=== PATIENT | male | born 1990 | race Caucasian/White ===

== ENCOUNTER 2019-10-14 11:38 | Outpatient (REF) | payer MEDICAID, SELFPAY ==
[2019-10-23 14:55] LABS: Methylphenidate >2000 ng/mL; Ritalinic Acid >10000 ng/mL
== END 2019-10-14 11:58 ==
LOC: LBN 11:38
PROVIDERS: PCP Nurse Practitioner; Visit Provider Nurse Practitioner
DX: R41.840 Attention and concentration deficit (principal); Z51.81 Encounter for therapeutic drug level monitoring
CPT/HCPCS: 80360

== ENCOUNTER 2019-10-27 10:34 | Outpatient (CLI) | payer MEDICAID, SELFPAY ==
[2019-10-27 12:43] LABS: ALT 57 U/L (16-63); AST 46 U/L (15-37); Albumin 3.9 g/dL (3.4-5.0); Alkaline Phosphatase 82 U/L (46-116); Anion Gap 8.8 mmol/L (3-11); BUN 17 mg/dL (7-18); Bilirubin, Total 0.5 mg/dL (0.2-1.0); CO2 30.2 mmol/L (21.0-32.0); CREATININE 0.96 mg/dL (0.70-1.30); Calcium 8.8 mg/dL (8.5-10.1); Chloride 105 mmol/L (98-107); Glucose 91 mg/dL (74-106); Potassium 4.1 mmol/L (3.5-5.1); Sodium 144 mmol/L (136-145); Total Protein 7.2 g/dL (6.4-8.2)
[2019-10-28 10:47] LABS: HBs Antibody, Qual Positive (See Note); HBs Antibody, Quant 224.7 mIU/mL (See Note); Hepatitis B Core Antibody Negative (Negative); Hepatitis B surface Ag Negative (Negative); Hepatitis C Ab w Rflx HCV PCR Reactive (Negative)
[2019-10-28 15:47] LABS: HCV RNA Detection Quantitative 0 IU/mL (Undetected)
== END 2019-10-27 10:54 ==
PROVIDERS: PCP Nurse Practitioner; Visit Provider Nurse Practitioner
DX: B19.20 Unspecified viral hepatitis C without hepatic coma (principal)
CPT/HCPCS: 36415; 80053; 86704; 86706; 86803; 87340; 87522

== ENCOUNTER 2020-08-18 01:15 | Outpatient (CLI) | payer MEDICAID, SELFPAY ==
[2020-08-22 14:00] LABS: Patient Race White; SARS-CoV-2 RNA Undetected (Undetected); SARS-CoV-2 Specimen Source Nasal
== END 2020-08-18 01:35 ==
PROVIDERS: PCP Nurse Practitioner; Visit Provider Nurse Practitioner
DX: J02.9 Acute pharyngitis, unspecified (principal); R52 Pain, unspecified
CPT/HCPCS: U0003

== ENCOUNTER 2020-12-05 16:29 | Outpatient (REF) | payer MEDICAID, SELFPAY ==
[2020-12-09 09:39] LABS: Amphetamine 1393 ng/mL (Cutoff: 25); Amphetamines Interpretation Positive.; MDA (Ecstasy Metabolite) Negative ng/mL (Cutoff: 25); MDMA (Ecstasy) Negative ng/mL (Cutoff: 25); Methamphetamine 23093 ng/mL (Cutoff: 25); Phentermine Negative ng/mL (Cutoff: 25); Pseudoephedrine/Ephedrine Negative ng/mL (Cutoff: 25)
== END 2020-12-05 16:30 | disposition home or self-care (01) ==
LOC: LBO 16:29
PROVIDERS: PCP Nurse Practitioner; Visit Provider Nurse Practitioner
DX: R89.2 Abnormal level of other drugs, medicaments and biological substances in specimens from other organs, systems and tissues (principal)
CPT/HCPCS: 80324

== ENCOUNTER 2021-05-29 10:14 | Outpatient (CLI) | payer MEDICAID, SELFPAY ==
--- NOTE | 2021-05-29 10:00 | RT.EKG_ITS ---
APPROVED REPORT Exam: Resting ECG Reason for Exam: chronic stimulants Patient Location: O HR:93 bpm ECG Measurements Heart Rate 93 AXIS WY 151 P 63 QRSd 87 QRS 9 QT 348 T 48 QTc 432 Conclusion Sinus rhythm...normal P axis, V-rate 60- 99
== END 2021-05-29 10:15 | disposition home or self-care (01) ==
LOC: DI.KIM 10:15
PROVIDERS: PCP Nurse Practitioner; Visit Provider Nurse Practitioner
DX: F11.20 Opioid dependence, uncomplicated (principal); I10 Essential (primary) hypertension; F90.9 Attention-deficit hyperactivity disorder, unspecified type

== ENCOUNTER 2021-10-31 00:47 | Outpatient (CLI) | payer MEDICAID, SELFPAY | END 2021-10-31 01:07 | PROVIDERS: PCP Nurse Practitioner; Visit Provider Nurse Practitioner ==

== ENCOUNTER 2022-03-06 10:22 | Outpatient (REF) | payer MEDICAID, SELFPAY ==
[2022-03-09 04:44] LABS: Benzoylecgonine 5293 ng/mL (Cutoff: 50); Cocaine Negative ng/mL (Cutoff: 50); Cocaine Interpretation Positive.
== END 2022-03-06 10:23 | disposition home or self-care (01) ==
LOC: LBN 10:22
PROVIDERS: PCP Nurse Practitioner; Visit Provider Nurse Practitioner
DX: R89.2 Abnormal level of other drugs, medicaments and biological substances in specimens from other organs, systems and tissues (principal)
CPT/HCPCS: 80353

== ENCOUNTER 2022-04-22 02:14 | Outpatient (CLI) | payer MEDICAID, SELFPAY | END 2022-04-22 02:15 | disposition home or self-care (01) | LOC: LBO 02:14 | PROVIDERS: PCP Nurse Practitioner; Visit Provider Nurse Practitioner ==

== ENCOUNTER 2022-05-02 03:32 | Outpatient (CLI) | payer MEDICAID, SELFPAY | END 2022-05-02 03:33 | disposition home or self-care (01) | LOC: RT 03:32 | PROVIDERS: PCP Nurse Practitioner; Visit Provider Family Medicine ==

== ENCOUNTER 2022-05-06 04:31 | Outpatient (CLI) | payer MEDICAID, SELFPAY | END 2022-05-06 04:32 | disposition home or self-care (01) | LOC: RT 04:31 | PROVIDERS: PCP Nurse Practitioner; Visit Provider Family Medicine ==

== ENCOUNTER 2022-07-10 09:29 | Outpatient (CLI) | payer MEDICAID, SELFPAY ==
--- NOTE | 2022-07-10 09:15 | RT.EKG_ITS ---
APPROVED REPORT Exam: Resting ECG Reason for Exam: on Ritalin Patient Location: O HR:104 bpm ECG Measurements Heart Rate 104 AXIS WA 192 P 68 QRSd 97 QRS 32 QT 353 T 67 QTc 465 Conclusion Sinus tachycardia...rate> [address] depression, anterolateral leads...ST <-0.07mV, I aVL V2-V6
== END 2022-07-10 09:30 | disposition home or self-care (01) ==
LOC: DI.KIM 09:30
PROVIDERS: PCP Nurse Practitioner; Visit Provider Nurse Practitioner
DX: R00.0 Tachycardia, unspecified (principal); Z79.899 Other long term (current) drug therapy
CPT/HCPCS: 93010

== ENCOUNTER 2023-01-21 19:09 | Emergency (ER) | payer MEDICAID, SELFPAY ==
[2023-01-21 19:22] VITALS: BP 142/96; PULSE 118; RESP 19; TEMP 36.8; O2SAT 96
--- NOTE | 2023-01-21 19:42 | ED.GENADUL_ITS ---
Discharge Plan Disposition Patient Disposition: Home Discharge Details Clinical Impression: Cellulitis of arm, left Primary Care Provider: Altagracia Dobbs ED Provider: Toya Aguilar Home Meds and New Rx's Prescriptions: New sulfamethoxazole-trimethoprim [Bactrim DS] 800-160 mg tablet 1 tab PO BID 10 Days Qty: 20 0RF No Action bupropion HCl [Wellbutrin XL] 300 mg tablet extended release 24 hr 300 mg PO QAM Qty: 90 3RF valacyclovir 500 mg tablet 500 mg PO DAILY Qty: 90 3RF methadone 10 mg tablet 70 mg PO DAILY methylphenidate HCl 10 mg tablet See Rx Instructions PO DAILY MDD 50mg Qty: 140 0RF Rx Instructions: 2 in the AM, 2 at noon, and 1 in the afternoon methylphenidate HCl 10 mg tablet See Rx Instructions PO DAILY MDD 50mg Qty: 140 0RF Rx Instructions: 2 tabs AM, 2 tabs noon, 1 tab PM methylphenidate HCl 10 mg tablet See Rx Instructions PO DAILY MDD 50mg Qty: 140 0RF Rx Instructions: 2 tabs AM, 2 tabs noon, 1 tab PM fluticasone propionate 50 mcg/actuation spray,suspension 2 spray JACINTO DAILY Qty: 18.2 6RF Rx Instructions: administer into each nostril Discharge Instructions Instructions: Cellulitis (ED) Additional Instructions: Please take the antibiotic twice daily as directed. Take this with yogurt or probiotic. Keep clean and dry. Follow up with primary care provider in 3-5 days. Return to ED sooner if any worsening or concerns. Increase oral fluids. The phone number for the manager recovery is [phone] if you are interested in rehab or treatment. Referrals: Altagracia Dobbs, TRISHA [Primary Care Provider] - 5 days Medical Decision Making 32-year-old male presents to the ER with an infected lesion on his left inner forearm. He does have a history of opioid dependency, he noticed this 3 to 4 days ago he does have red streaks going up his arm. Denies any fever or chills. I do suspect IV drug use. Patient presents with his girlfriend who also has si milar complaints. Past medical history includes hepatitis C, genital herpes, anxiety tobacco abuse, ADHD. I do suspect IV drug use, there is an area of induration and cellulitis erythema. We will give Bactrim here in the department and 2 tablets to go. assistant wrestling coach paged. assistant wrestling coach here in the ER to speak with patient. Given Bactrim and strict return instructions. Instructed to follow-up with PCP keep clean and dry. This text was generated using DrawQuestation system, please disregard any oddities of phrase or misspellings. HPI General Mode of arrival: ambulatory . Date/Time Provider Initiated Documentation: 01/21/23 19:29 . Limitations to Documentation: no limitations . Information obtained by: patient, RN notes reviewed and old records reviewed . HPI Narrative: 32-year-old male presents to the ER with an infected lesion on his left inner forearm. He does have a history of opioid dependency, he noticed this 3 to 4 days ago he does have red streaks going up his arm. Denies any fever or chills. I do suspect IV drug use. Patient presents with his girlfriend who also has similar complaints. Past medical history includes hepatitis C, genital herpes, anxiety tobacco abuse, ADHD. Related Data Home Medications Medication Instructions Recorded Confirmed fluticasone propionate 50 2 spray intranasal DAILY #18.2 mL 04/19/22 mcg/actuation nasal spray,suspension bupropion HCl 300 mg 24 hr tablet, 300 mg PO QAM #90 tabs 07/10/22 07/10/22 extended release (Wellbutrin XL) methadone 10 mg tablet 70 mg PO DAILY 07/10/22 valacyclovir 500 mg tablet 500 mg PO DAILY #90 tab-caps 07/10/22 07/10/22 methylphenidate HCl 10 mg tablet See Rx Instructions PO DAILY #140 11/26/22 11/26/22 tabs methylphenidate HCl 10 mg tablet See Rx Instructions PO DAILY #140 11/26/22 11/26/22 tabs methylphenidate HCl 10 mg tablet See Rx Instructions PO DAILY #140 11/26/22 11/26/22 tabs sulfamethoxazole 800 1 tab PO BID 10 days #20 tabs 01/21/23 mg-trimethoprim 160 mg tablet (Bactrim DS) Previous Rx's Medication Instructions Recorded fluticasone propionate 50 2 spray intranasal DAILY #18.2 mL 04/19/22 mcg/actuation nasal spray,suspension bupropion HCl 300 mg 24 hr tablet, 300 mg PO QAM #90 tabs 07/10/22 extended release (Wellbutrin XL) valacyclovir 500 mg tablet 500 mg PO DAILY #90 tab-caps 07/10/22 methylphenidate HCl 10 mg tablet See Rx Instructions PO DAILY #140 11/26/22 tabs methylphenidate HCl 10 mg tablet See Rx Instructions PO DAILY #140 11/26/22 tabs methylphenidate HCl 10 mg tablet See Rx Instructions PO DAILY #140 11/26/22 tabs sulfamethoxazole 800 1 tab PO BID 10 days #20 tabs 01/21/23 mg-trimethoprim 160 mg tablet (Bactrim DS) Allergies Allergy/AdvReac Type Severity Reaction Status Date / Time No Known Allergies Allergy Verified 09/05/22 11:00 General Stated Complaint: Cellulitis ANGELI: 4 Review of Systems Integumentary/Breasts Skin/Breast: Reports skin pain, Reports skin swelling and Reports wounds PFSH All Active Problems (Updated 01/21/23 @ 19:47 by Toya Aguilar NP) Cellulitis of arm, left (Acute) Elevated blood pressure reading in office with diagnosis of hypertension (Acute) Abnormal drug screen (Acute) Overweight (Acute) Opioid dependence on agonist therapy (Acute) Depression (Chronic) ADHD (attention deficit hyperactivity disorder) (Acute) Body aches (Acute) Sore throat (Acute) Environmental allergies (Acute) Sinus pressure (Acute) Dental abscess (Acute) Attention and concentration deficit (Chronic) Tobacco abuse (Acute 04/16/18) Opioid dependence (Acute 01/07/17) no use since Nov 2013 IV drugs History of opioid abuse (Acute 04/16/18) Hepatitis C virus infection (Acute 11/07/16) Genital herpes in men (Acute 11/08/16) Anxiety (Acute 06/01/18) Medical History Cellulitis of left upper extremity (11/07/16) Social History Smoking/Tobacco Use Status: Former Tobacco Use Tobacco: How many years used: 2 Smoking risk assessment performed?: Yes Alcohol Intake: never Substance use type: does not use Details: Patient currently on methadone. 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 Scabbed over puncture wound 2. Erythema and red streaks Course Vital Signs Vital signs: Vital Signs Temperature 36.8 C 01/21/23 19:22 Pulse 118 H 01/21/23 19:22 Respiratory Rate 19 01/21/23 19:22 Blood Pressure 142/96 H 01/21/23 19:22 Pulse Oximetry 96 01/21/23 19:22 Temperature 36.8 C 01/21/23 19:22 Temperature Source Temporal Artery Scan 01/21/23 19:22 Pulse 118 H 01/21/23 19:22 Respiratory Rate 19 01/21/23 19:22 Respiratory Effort Normal 01/21/23 19:26 Blood Pressure 142/96 H 01/21/23 19:22 Blood Pressure Position Sitting 01/21/23 19:22 Pulse Oximetry 96 01/21/23 19:22 Oxygen Delivery Method Room Air 01/21/23 19:22 Oxygen Flow Rate 0 01/21/23 19:22 Pain Level 0 01/21/23 19:22
[2023-01-21] MEDS: Sulfameth/Trimeth DS TAB 1 TAB PO (20:27)
[2023-01-21] MEDS: Sulfameth/Trimeth DS, 2 TABS/BTL 1 TAB PO (20:27)
== END 2023-01-21 20:39 | disposition home or self-care (01) ==
PROVIDERS: Emergency Provider Registered Nurse Emergency; PCP Nurse Practitioner
DX: L03.114 Cellulitis of left upper limb (principal); S51.832A Puncture wound without foreign body of left forearm, initial encounter; X58.XXXA Exposure to other specified factors, initial encounter
CPT/HCPCS: 99283; 99284

== ENCOUNTER 2024-08-04 19:34 | Outpatient (REF) | payer MEDICAID, SELFPAY ==
[2024-08-04 17:19] LABS: Abs Immature Grans 0.07 10^3/uL (0.0-0.06); Absolute Basophil Count 0.02 10^3/uL (0.0-0.2); Absolute Lymphocyte Count 0.86 10^3/uL (1.2-3.4); Absolute Monocyte Count 0.37 10^3/uL (0.1-0.8); Absolute Neutrophil Count 7.04 10^3/uL (1.2-6.7); Basophils % 0.2 %; HCT 40.8 % (40.0-50.0); HGB 13.6 g/dL (13.5-17.5); Immature Grans % 0.8 %; Lymphocytes % 10.3 %; MCH 29.1 pg (27.0-33.0); MCHC 33.3 % (32.0-36.0); MCV 87 fL (80-95); Monocytes % 4.4 %; Neutrophils % 84.3 %; Platelet Count 217 10^3/uL (130-400); RBC 4.67 10^6/uL (4.36-5.78); RDW 12.9 % (11.8-14.1); RDW-SD 40.8 fL; WBC 8.36 10^3/uL (4.4-10.8)
[2024-08-04 17:35] LABS: ALT 35 U/L (16-63); AST 35 U/L (15-37); Albumin 4.2 g/dL (3.4-5.0); Alkaline Phosphatase 82 U/L (46-116); Anion Gap 11.7 mmol/L (3-11); BUN 11 mg/dL (7-18); Bilirubin, Total 0.83 mg/dL (0.2-1.0); CO2 27.3 mmol/L (21.0-32.0); CREATININE 0.9 mg/dL (0.70-1.30); Calcium 9.1 mg/dL (8.5-10.1); Calculated LDL 167 mg/dL (<100); Chloride 104 mmol/L (98-107); Cholesterol 227 mg/dL (<200); Estimated GFR 113.51 (mL/min/1.73m2); Glucose 101 mg/dL (74-106); HDL Cholesterol 51 mg/dL (40-60); Potassium 3.8 mmol/L (3.5-5.1); Sodium 143 mmol/L (136-145); Total Protein 7.7 g/dL (6.4-8.2); Triglyceride 46 mg/dL (<150)
== END 2024-08-04 19:35 | disposition home or self-care (01) ==
LOC: LBN 19:34
PROVIDERS: PCP Nurse Practitioner; Visit Provider Nurse Practitioner
DX: F90.8 Attention-deficit hyperactivity disorder, other type (principal); B19.20 Unspecified viral hepatitis C without hepatic coma; Z13.220 Encounter for screening for lipoid disorders
CPT/HCPCS: 80053; 80061; 85025

== ENCOUNTER 2024-11-12 06:57 | Emergency (ER) | payer MEDICAID, SELFPAY ==
[2024-11-12 07:00] VITALS: BP 142/89; PULSE 79; RESP 16; TEMP 36.8; O2SAT 98
[2024-11-12 07:04] VITALS: BP 142/89; PULSE 79; RESP 16; TEMP 36.8; O2SAT 98
--- NOTE | 2024-11-12 07:18 | ED.GENADUL_ITS ---
Discharge Plan Disposition Patient Disposition: Home Condition: Good Discharge Details Clinical Impression: Dysuria Primary Care Provider: Altagracia Dobbs ED Provider: Juan Belcher Home Meds and New Rx's Prescriptions: New doxycycline hyclate 100 mg tablet 100 mg PO BID 7 Days Qty: 14 0RF No Action methadone 10 mg tablet 185 mg PO DAILY methylphenidate HCl 10 mg tablet See Rx Instructions PO DAILY MDD 50mg Qty: 140 0RF Rx Instructions: 2 tabs AM, 2 tabs noon, 1 tab PM valacyclovir 500 mg tablet 500 mg PO DAILY Qty: 90 3RF methylphenidate HCl 10 mg tablet See Rx Instructions PO DAILY MDD 50mg Qty: 140 0RF Rx Instructions: 2 in the AM, 2 at noon, and 1 in the afternoon methylphenidate HCl 10 mg tablet See Rx Instructions PO DAILY MDD 50mg Qty: 140 0RF Rx Instructions: 2 tabs AM, 2 tabs noon, 1 tab PM imiquimod 5 % cream in packet 1 applic topical .3xw Qty: 24 1RF fluticasone propionate 50 mcg/actuation spray,suspension 2 spray JACINTO DAILY Qty: 18.2 6RF Rx Instructions: administer into each nostril Discharge Instructions Instructions: Dysuria (ED) Additional Instructions: At this time there is concern that you have a mild urinary tract infection. In your age group, there is a high risk for potential sexually transmitted infection that can cause the symptoms. You have been tested for gonorrhea and chlamydia. This will take a few days for the results to come back. In the meantime you have consented for prophylactic treatment. Please take the doxycycline as prescribed. Please make sure to take it with food as it will oth erwise cause nausea and vomiting. Please use protection or remain abstinent until your STD results have returned negative. If you notice any worsening of your symptoms, or any new symptoms such as vomiting, diarrhea, fever, chills, shortness of breath, chest pain, numbness, weakness, or fainting , please return immediately to the emergency department for reevaluation. Please follow up with your primary care provider as soon as possible for reassessment and reevaluation. As always, it was a pleasure participating in your medical care today. Referrals: Altagracia Dobbs NP [Primary Care Provider] - [facility] General Date/Time Provider Initiated Documentation: 11/12/24 06:58 . HPI Narrative: 34-year-old male with a past medical history of dental caries, previous cellulitis, tobacco use, history of hepatitis C, ADHD, herpes, presents today for evaluation of dysuria. Patient states that for the last 24 hours he has had burning with urination and is also noticed some yellowish penile discharge. He denies any history of STDs aside for the herpes. He states that he has been with his current female partner for quite some time. He denies any anal sex. He does state that she was recently treated for urinary tract infection. He states that he has not had sex with any other partners. He denies any fever or chills. He denies any abdominal pain. He denies any other complaints at this time. Related Data Home Medications ?Medication ?Instructions ?Recorded ?Confirmed fluticasone propionate 50 2 spray intranasal DAILY #18.2 mL 04/19/22 11/12/24 mcg/actuation nasal spray,suspension methadone 10 mg tablet 185 mg PO DAILY 07/10/22 11/12/24 methylphenidate HCl 10 mg tablet See Rx Instructions PO DAILY #140 05/27/23 11/12/24 tabs valacyclovir 500 mg tablet 500 mg PO DAILY #90 tab-caps 07/07/24 11/12/24 imiquimod 5 % topical cream packet 1 applic topical .3xw #24 ea 08/04/24 11/12/24 methylphenidate HCl 10 mg tablet See Rx Instructions PO DAILY #140 09/28/2404/29 tabs methylphenidate HCl 10 mg tablet See Rx Instructions PO DAILY #140 09/28/24 11/12/24 tabs doxycycline hyclate 100 mg tablet 100 mg PO BID 7 days #14 tabs 11/12/24 Previous Rx's ?Medication ?Instructions ?Recorded fluticasone propionate 50 2 spray intranasal DAILY #18.2 mL 04/19/22 mcg/actuation nasal spray,suspension methylphenidate HCl 10 mg tablet See Rx Instructions PO DAILY #140 05/27/23 tabs valacyclovir 500 mg tablet 500 mg PO DAILY #90 tab-caps 07/07/24 imiquimod 5 % topical cream packet 1 applic topical .3xw #24 ea 08/04/24 methylphenidate HCl 10 mg tablet See Rx Instructions PO DAILY #140 12/24/24 tabs methylphenidate HCl 10 mg tablet See Rx Instructions PO DAILY #140 09/28/24 tabs doxycycline hyclate 100 mg tablet 100 mg PO BID 7 days #14 tabs 11/12/24 Allergies Allergy/AdvReac Type Severity Reaction Status Date / Time No Known Allergies Allergy Verified 11/12/24 07:03 General Stated Complaint: Urinary ANGELI: 4 Exam Narrative Exam Narrative: 1.Const: Well-nourished, Well-developed, appearing stated age 2.Eyes: PERRL, no conjunctival injection, and symmetrical lids. 3.ENT: Atraumatic external nose and ears. Moist MM. Neck: Symmetric, trachea midline, No thyromegaly. 4.CVS: +S1/S2, Peripheral pulses 2+ and equal in all extremities. Brisk capillary refill in all extremities. 5.RESP: Unlabored respiratory effort. Clear to auscultation bilaterally. No wheezes rales or rhonchi 6.GI: Soft, Nontender/Nondistended, No hepatosplenomegaly. No guarding or rebound. Genital exam demonstrates normal male genitalia, no lesions in general or herpetic lesions. Very small amount of urethral discharge which appears to be combination of urine and a small questionable component that may be purulent. No scrotal or testicular tenderness. 7.MSK: Normocephalic/Atraumatic, Extremities w/o deformity or ttp No cyanosis or clubbing, Normal movement of all extremities 8.Skin: Warm, Dry. No rashes or lesions. 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 Sensation grossly intact, no focal neurologic deficits. 10.Psych: (AAO) x3. Appropriate mood and affect Course Vital Signs Vital signs: Vital Signs Temperature 36.8 C 11/12/24 07:00 Pulse 79 11/12/24 07:00 Respiratory Rate 16 11/12/24 07:00 Blood Pressure 142/89 H 11/12/24 07:00 Pulse Oximetry 98 11/12/24 07:00 Temperature 36.8 C 11/12/24 07:04 Temperature Source Oral 11/12/24 07:04 Pulse 79 11/12/24 07:04 Respiratory Rate 16 11/12/24 07:04 Blood Pressure 142/89 H 11/12/24 07:04 Pulse Oximetry 98 11/12/24 07:04 Medical Decision Making 34-year-old male with a past medical history of dental caries, previous cellulitis, tobacco use, history of hepatitis C, ADHD, herpes, presents today for evaluation of dysuria. Patient states that for the last 24 hours he has had burning with urination and is also noticed some yellowish penile discharge. He denies any history of STDs aside for the herpes. He states that he has been with his current female partner for quite some time. He denies any anal sex. He does state that she was recently treated for urinary tract infection. He states that he has not had sex with any other partners. He denies any fever or chills. He denies any abdominal pain. He denies any other complaints at this time. Exam demonstrates a stable appearing male, no acute distress, questionable small amount of discharge at the urethral meatus, no tenderness. No herpetic lesions. No lesions in general. No scrotal or testicular pain. No prostatic discomfort to suggest prostatitis. No fevers to suggest systemic component. High concern for potential sexually transmitted infection. He denies concerning red flags of anal intercourse. A basic urinary tract infection certainly on the differential as well but I feel slightly less likely considering his age and risk factors. We will send for gonorrhea and chlamydia testing. Patient has consented and is requesting prophylactic antibiotics. Will give 500 mg of IM ceftriaxone, and 100 mg of doxycycline twice daily for 7 days. Recommend utilizing protection until results return negative and symptoms resolved. I have extensively reviewed the treatment plan and discharge instructions with the patient. I have addressed all patient concerns at this time. The patient was made aware of what symptoms to monitor for that would warrant a return to the emergency department. Discussed the plan with the patient, they demonstrate verbal understanding and agreement with our assessment and plan at this time. The documentation in this chart was dictated using [employer] dictation software. Please excuse any dictation errors. Quality:SDOH Health Related Social Needs: No Data to Display PFSH All Active Problems (Updated 11/12/24 @ 07:23 by Juan Belcher DO) Dysuria (Acute) Elevated blood pressure reading in office with diagnosis of hypertension (Acute) Abnormal drug screen (Acute) Overweight (Acute) Opioid dependence on agonist therapy (Acute) Depression (Chronic) ADHD (attention deficit hyperactivity disorder) (Acute) Body aches (Acute) Sore throat (Acute) Environmental allergies (Acute) Sinus pressure (Acute) Dental abscess (Acute) Attention and concentration deficit (Chronic) Tobacco abuse (Acute 04/16/18) Opioid dependence (Acute 01/07/17) no use since Nov 2013 IV drugs History of opioid abuse (Acute 04/16/18) Hepatitis C virus infection (Acute 11/07/16) Genital herpes in men (Acute 11/08/16) Anxiety (Acute 06/01/18) Medical History Cellulitis of left upper extremity (11/07/16) Family History (Updated 08/04/24 @ 08:03 by Kera Ross LPN) Father No problems noted. Mother , of MVA, age 42 No problems noted. Social History Smoking/Tobacco Use Status: Former Tobacco Use Tobacco: How many years used: 2 Smoking risk assessment performed?: Yes Alcohol Intake: never Substance use type: does not use Counseling given: No (has regular counseling at [facility]) Details: Patient currently on methadone. 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
[2024-11-12 07:20] LABS: Bilirubin Negative (Negative); Blood Trace-intact (Negative); Clarity Sl Cloudy (Clear); Glucose Negative (Negative); Ketones Negative (Negative); Leukocyte Esterase Small (Negative); Nitrite Negative (Negative); Specific Gravity >= 1.030 (1.005-1.025); Urobilinogen 0.2 mg/dL (Up to 0.2); pH 5.5 (5-8)
[2024-11-12 07:35] LABS: Bacteria Few HPF (Negative); C & S Indicated? Yes; Casts Negative LPF (Negative); Crystals Negative HPF (Negative); Epithelial Cells Rare HPF (Negative); Mucus Trace (Negative); Other Cells Negative (Negative); RBC Negative HPF (0-2); WBC >50 HPF (0-5)
[2024-11-12] MEDS: cefTRIAXone 1 GM VIAL 0.5 GM IM (07:35)
[2024-11-12] MEDS: Lidocaine 1% Pres-Free 5 ML VIAL (07:36)
[2024-11-12] MEDS: Doxycycline Hyclate 100 MG, 2 CAPS/BTL PO (07:36)
[2024-11-15 12:08] LABS: Chlamydia Result Negative (Negative)
[2024-11-15 12:56] LABS: GC Result Positive (Negative)
--- NOTE | 2024-11-15 13:00 | NUR.NOTE ---
Accessed chart to get the antibiotics prescribed on discharge for positive gonnorrhea culture result. Nursing Note:
--- NOTE | 2024-11-15 16:10 | W.EDPROG ---
Date of service: 11/15/24 Time of Service: 16:11 Medical Decision Making Quality:SDOH Health Related Social Needs: No Data to Display Discharge Plan Disposition Patient Disposition: Home Condition: Good Discharge Details Clinical Impression: Dysuria Primary Care Provider: Altagracia Dobbs ED Provider: Juan Belcher Home Meds and New Rx's Prescriptions: New doxycycline hyclate 100 mg tablet 100 mg PO BID 7 Days Qty: 14 0RF No Action methadone 10 mg tablet 185 mg PO DAILY methylphenidate HCl 10 mg tablet See Rx Instructions PO DAILY MDD 50mg Qty: 140 0RF Rx Instructions: 2 tabs AM, 2 tabs noon, 1 tab PM valacyclovir 500 mg tablet 500 mg PO DAILY Qty: 90 3RF methylphenidate HCl 10 mg tablet See Rx Instructions PO DAILY MDD 50mg Qty: 140 0RF Rx Instructions: 2 in the AM, 2 at noon, and 1 in the afternoon methylphenidate HCl 10 mg tablet See Rx Instructions PO DAILY MDD 50mg Qty: 140 0RF Rx Instructions: 2 tabs AM, 2 tabs noon, 1 tab PM imiquimod 5 % cream in packet 1 applic topical .3xw Qty: 24 1RF fluticasone propionate 50 mcg/actuation spray,suspension 2 spray JACINTO DAILY Qty: 18.2 6RF Rx Instructions: administer into each nostril Discharge Instructions Instructions: Dysuria (ED) Additional Instructions: At this time there is concern that you have a mild urinary tract infection. In your age group, there is a high risk for potential sexually transmitted infection that can cause the symptoms. You have been tested for gonorrhea and chlamydia. This will take a few days for the results to come back. In the meantime you have consented for prophylactic treatment. Please take the doxycycline as prescribed. Please make sure to take it with food as it will otherwise cause nausea and vomiting. Please use protection or remain abstinent until your STD results have returned negative. If you notice any worsening of your symptoms, or any new symptoms such as vomiting, diarrhea, fever, chills, shortness of breath, chest pain, numbness, weakness, or fainting , please return immediately to the emergency department for reevaluation. Please follow up with your primary care provider as soon as possible for reassessment and reevaluation. As always, it was a pleasure participating in your medical care today. Referrals: Altagracia Dobbs NP [Primary Care Provider] - Discharge Data Discharge Date/Time-TO BE ENTERED AT DEPARTURE: 11/12/24 07:41
--- NOTE | 2024-11-15 16:18 | W.ED.FU ---
Date of service: 11/15/24 Time of Service: 16:18 Follow Up Plan: I called the patient at home as his gonorrhea swab was positive. He reported that his symptoms had improved. He received intramuscular ceftriaxone and was on doxycycline. Will call in expedited partner for pt's partner: Ginger Barnes 06/03/01. I called cefixime [phone] p.o. once and doxycycline 100 mg twice daily for 7 days. I advised patient to abstain from sexual intercourse until it had been at least 1 week since they have completed their treatment. I advised PCP follow-up for test of cure. We discussed return indications for fever or had any recurrent dysuria.
== END 2024-11-12 07:41 | disposition home or self-care (01) ==
PROVIDERS: Emergency Provider Student in an Organized Health Care Education/Training Program; PCP Nurse Practitioner
DX: R30.0 Dysuria (principal); Z87.891 Personal history of nicotine dependence
CPT/HCPCS: 87491; 87591; 96372; 99284; 81003; 81015; 87086; J0696; J2003

== ENCOUNTER 2024-11-12 07:50 | Outpatient (CLI) | payer MEDICAID, SELFPAY ==
--- NOTE | 2024-11-12 07:45 | RT.EKG_ITS ---
APPROVED REPORT Exam: Resting ECG Reason for Exam: HIGH RISK MEDICATION USE Patient Location: O HR:76 bpm ECG Measurements Heart Rate 76 AXIS SC 163 P 61 QRSd 84 QRS 14 QT 412 T 48 QTc 464 Conclusion Sinus rhythm...normal P axis, V-rate 50- 99 Normal Electrocardiogram
== END 2024-11-12 07:51 | disposition home or self-care (01) ==
PROVIDERS: PCP Nurse Practitioner; Visit Provider Family Medicine
DX: Z79.899 Other long term (current) drug therapy (principal)
CPT/HCPCS: 93005; 93010

== ENCOUNTER 2025-01-08 09:00 | Emergency (ER) | payer MEDICAID, SELFPAY ==
--- NOTE | 2025-01-08 09:00 | DI.RAD_ITS ---
Exam(s) XR CHEST 2V PA LATERAL EXAM: XR CHEST 2V PA LATERAL CLINICAL HISTORY: cough TECHNIQUE: 2D digital imaging was performed of the chest. Two images were obtained. PA and lateral views were obtained. COMPARISON: No exams were available for comparison FINDINGS: MEDIASTINUM: Normal. HEART: Normal. PULMONARY VASCULATURE: Normal. LUNGS: Clear. PLEURAL SPACE: No pleural effusion or pneumothorax. BONE:Within normal limits for the patient's age. OTHER FINDINGS:Normal. IMPRESSION: No acute pulmonary findings. DATA REPOSITORY: RADIATION DOSE DELIVERED:
[2025-01-08 09:06] VITALS: BP 138/93; PULSE 116; RESP 17; TEMP 37; O2SAT 96
[2025-01-08 09:08] VITALS: BP 138/93; PULSE 116; RESP 17; TEMP 37; O2SAT 96
--- NOTE | 2025-01-08 09:11 | ED.GENADUL_ITS ---
Discharge Plan Disposition Patient Disposition: Home Condition: Stable Discharge Details Clinical Impression: Respiratory infection Primary Care Provider: Altagracia Dobbs ED Provider: Oli Mccloud Home Meds and New Rx's Prescriptions: New prednisone 20 mg tablet 60 mg PO DAILY 4 Days Qty: 12 0RF doxycycline hyclate 100 mg tablet 100 mg PO BID Qty: 14 0RF Continued methadone 10 mg tablet 185 mg PO DAILY methylphenidate HCl 10 mg tablet See Rx Instructions PO DAILY MDD 50mg Qty: 140 0RF Rx Instructions: 2 in the AM, 2 at noon, and 1 in the afternoon methylphenidate HCl 10 mg tablet See Rx Instructions PO DAILY MDD 50mg Qty: 140 0RF Rx Instructions: 2 tabs AM, 2 tabs noon, 1 tab PM methylphenidate HCl 10 mg tablet See Rx Instructions PO DAILY MDD 50mg Qty: 140 0RF Rx Instructions: 2 tabs AM, 2 tabs noon, 1 tab PM imiquimod 5 % cream in packet 1 applic topical .3xw Qty: 24 1RF valacyclovir 500 mg tablet 500 mg PO DAILY Qty: 90 3RF fluticasone propionate 50 mcg/actuation spray,suspension 2 spray JACINTO DAILY Qty: 18.2 6RF Rx Instructions: administer into each nostril Discharge Instructions Additional Instructions: You can use your albuterol inhaler every 4 hours, 2 puffs at a time. If not improving this week follow-up with your primary care provider or express care. If you feel significantly more ill or have difficulty breathing return to the emergency department for reevaluation. HPI General Mode of arrival: ambulatory . Date/Time Provider Initiated Documentation: 01/08/25 09:06 . Limitations to Documentation: no limitations . Information obtained by: patient . History of Present Illness 34 year old M presents to the emergency department with the chief complaint of cough, described as moderate, Patient started experiencing this day(s) (5) and it has been constant. No relieving factors improve symptom(s), No exacerbating factors reported . Patient notes denies nausea/vomiting and shortness of breath. Patient did receive the following treatments prior to arrival, none Related Data Home Medications ?Medication ?Instructions ?Recorded ?Confirmed fluticasone propionate 50 2 spray intranasal DAILY #18.2 mL 04/19/2201/08/ mcg/actuation nasal spray,suspension methadone 10 mg tablet 185 mg PO DAILY 07/10/22 01/08/25 imiquimod 5 % topical cream packet 1 applic topical .3xw #24 ea 12/06/24 01/08/25 methylphenidate HCl 10 mg tablet See Rx Instructions PO DAILY #140 12/06/2402/27 tabs methylphenidate HCl 10 mg tablet See Rx Instructions PO DAILY #140 12/06/24 01/08/25 tabs methylphenidate HCl 10 mg tablet See Rx Instructions PO DAILY #140 12/06/24 01/08/25 tabs valacyclovir 500 mg tablet 500 mg PO DAILY #90 tab-caps 12/06/24 01/08/25 doxycycline hyclate 100 mg tablet 100 mg PO BID #14 tabs 01/08/25 prednisone 20 mg tablet 60 mg (3 x 20 mg) PO DAILY 4 days 01/08/25 #12 tabs Previous Rx's ?Medication ?Instructions ?Recorded fluticasone propionate 50 2 spray intranasal DAILY #18.2 mL 04/19/22 mcg/actuation nasal spray,suspension imiquimod 5 % topical cream packet 1 applic topical .3xw #24 ea 12/06/24 methylphenidate HCl 10 mg tablet See Rx Instructions PO DAILY #140 12/06/24 tabs methylphenidate HCl 10 mg tablet See Rx Instructions PO DAILY #140 12/06/24 tabs methylphenidate HCl 10 mg tablet See Rx Instructions PO DAILY #140 12/06/24 tabs valacyclovir 500 mg tablet 500 mg PO DAILY #90 tab-caps 12/06/24 doxycycline hyclate 100 mg tablet 100 mg PO BID #14 tabs 01/08/25 prednisone 20 mg tablet 60 mg (3 x 20 mg) PO DAILY 4 days 01/08/25 #12 tabs Allergies Allergy/AdvReac Type Severity Reaction Status Date / Time No Known Allergies Allergy Verified 01/08/25 09:08 General Stated Complaint: RespSymp ANGELI: 4 Review of Systems All systems reviewed & are unremarkable except as noted in HPI and below Constitutional Constitutional: Reports chills, Reports fever(s) and Denies weakness Cardiovascular Cardiovascular: Denies chest pain and Denies dyspnea Respiratory Respiratory: Reports cough and Denies dyspnea Gastrointestinal Gastrointestinal: Denies abdominal pain, Denies nausea and Denies vomiting Musculoskeletal Musculoskeletal: Denies joint swelling Neurologic Neurologic: Denies weakness Psychiatric Psychiatric: Denies depression Exam Const General: no acute distress Orientation: alert [facility] Head: normal to inspection Ears: external ears normal General nose exam: external nose normal Mouth: moist mucous membranes Eyes General: appearance normal, both eyes and all related structures Neck Neck: normal visual inspection Resp Effort & Inspection: normal respiratory effort and able to speak in complete sentences Auscultation: rhonchi and wheezes Cardio Jugular venous pressure: no JVD Rate: regular rate Skin General skin exam: no rashes or lesions noted Neuro General: patient alert and patient oriented x3 Extrem General: normal to inspection Psych Mental Status: mental status grossly normal Course Vital Signs Vital signs: Vital Signs Temperature 37.0 C 01/08/25 09:06 Pulse 116 H 01/08/25 09:06 Respiratory Rate 17 01/08/25 09:06 Blood Pressure 138/93 H 01/08/25 09:06 Pulse Oximetry 96 01/08/25 09:06 Temperature 37.0 C 01/08/25 09:08 Temperature Source Temporal Artery Scan 01/08/25 09:08 Pulse 116 H 01/08/25 09:08 Respiratory Rate 17 01/08/25 09:08 Respiratory Effort Normal 01/08/25 09:09 Respiratory Depth Normal 01/08/25 09:09 Blood Pressure 138/93 H 01/08/25 09:08 Blood Pressure Position Sitting 01/08/25 09:08 Pulse Oximetry 96 01/08/25 09:08 Oxygen Delivery Method Room Air 01/08/25 09:08 Oxygen Flow Rate 0 01/08/25 09:08 Pain Level 6 01/08/25 09:08 Medical Decision Making 34-year-old male denies smoking or drug use and is on methadone comes in with 5 days of productive cough and subjective fevers and chills. He denies any recent travel. No rashes, no difficulty breathing or vomiting. He is well-appearing speaking in full sentences. He does have rhonchi at the bases bilaterally with apical wheezing bilaterally. No JVD or leg swelling or calf tenderness. His symptoms seem respiratory infection, heart rate on my exam is 92. I will obtain a [id number] flu and COVID test and also obtain chest x-ray and treat his symptoms with prednisone and DuoNeb and reassess. Given his well appearance I do not feel other lab work is indicated. Patient feels better after neb and lung sounds are now clear. X-ray my read shows no acute findings and his viral swab is negative. Given he has had 5 days of symptoms with a negative viral swab by him without a seat and the headaches with doxycycline. He is stable for discharge and will follow-up with his PCP if improving and return precautions given Quality:[facility] Health Related Social Needs: No Data to Display [facility] All Active Problems (Updated 01/08/25 @ 09:47 by Oli Mccloud MD) Respiratory infection (Acute) Elevated blood pressure reading in office with diagnosis of hypertension (Acute) Abnormal drug screen (Acute) Overweight (Acute) Opioid dependence on agonist therapy (Acute) Depression (Chronic) ADHD (attention deficit hyperactivity disorder) (Acute) Body aches (Acute) Sore throat (Acute) Environmental allergies (Acute) Sinus pressure (Acute) Dental abscess (Acute) Attention and concentration deficit (Chronic) Tobacco abuse (Acute 04/16/18) Opioid dependence (Acute 01/07/17) no use since Nov 2013 IV drugs History of opioid abuse (Acute 04/16/18) Hepatitis C virus infection (Acute 11/07/16) Genital herpes in men (Acute 11/08/16) Anxiety (Acute 06/01/18) Medical History Cellulitis of left upper extremity (11/07/16) Family History (Updated 08/04/24 @ 08:03 by Kera Ross LPN) Father No problems noted. Mother , of MVA, age 42 No problems noted. Social History (Updated 12/06/24 @ 09:33 by Kera Ross LPN) Smoking/Tobacco Use Status: Former Tobacco Use Tobacco: How many years used: 2 Smoking risk assessment performed?: Yes Alcohol Intake: never Substance use type: does not use Counseling given: No (has regular counseling at [facility]) Details: Patient currently on methadone. 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
[2025-01-08 09:14] VITALS: RESP 6
[2025-01-08] MEDS: Albuterol/Ipratropium 3 ML UPD VIAL UPD (09:14)
[2025-01-08] MEDS: predniSONE 20 MG TAB 60 MG PO (09:14)
--- NOTE | 2025-01-08 09:50 | DI.VRAD_ITS ---
PROCEDURE INFORMATION: Exam: XR Chest Exam date and time: 01/08/2025 9:36 AM Age: 34 years old Clinical indication: Other: Cough TECHNIQUE: Imaging protocol: Radiologic exam of the chest. Views: 2 views. COMPARISON: No relevant prior studies available. FINDINGS: Lungs: No focal consolidation seen. Pleural spaces: No large pleural effusion seen. Heart/Mediastinum: No cardiomegaly. Bones/joints: No acute abnormality. IMPRESSION: No acute findings to explain reported symptoms. Dictated and Authenticated by: Domi Vazquez MD. Orderin Rogers Baird MD
[2025-01-08] MEDS: Albuterol HFA 8 GM 60 PUFF INH IH (09:51)
[2025-01-08 09:55] VITALS: PULSE 108; RESP 16; TEMP 37; O2SAT 97
== END 2025-01-08 09:56 | disposition home or self-care (01) ==
PROVIDERS: Emergency Provider Emergency Medicine; PCP Nurse Practitioner
DX: J06.9 Acute upper respiratory infection, unspecified (principal); Z87.891 Personal history of nicotine dependence
CPT/HCPCS: 87426; 94640; 99284; 71046; J7512; J7620